=== PATIENT | male | born 1955 | race Caucasian/White ===

== ENCOUNTER 2020-12-03 10:05 | Day surgery (SDC) | payer MEDICARE, BC ==
[2020-11-28 14:56] VITALS: BMI 28.8
[2020-12-03] MEDS: SODIUM CHLORIDE 0.9% 1,000 ML IV SCH (10:59)
[2020-12-03] MEDS ORDERED: PROPOFOL 10 MG/ML 20 ML VIAL IV ONE (13:59)
[2020-12-03] MEDS ORDERED: ISOPROTERENOL 250 MCG/1.25 ML SYR IV ONE (13:59)
[2020-12-03] MEDS ORDERED: PHENYLEPHRINE-0.9% NACL SYG 1,000 MCG/10 ML SYRINGE ONE (13:59)
[2020-12-03] MEDS ORDERED: methylPREDNISolone SOD SUCCI 125 MG/2 ML VIAL ONE ×2 (13:59→14:09)
[2020-12-03] MEDS ORDERED: PROTAMINE SULFATE 10 MG/ML 5 ML VIAL IV ONE (13:59)
[2020-12-03] MEDS ORDERED: HYDROmorphone (PF) 1 MG/ML ONE (13:59)
[2020-12-03] MEDS ORDERED: fentaNYL (PF) 50 MCG/ML 2 ML AMP ONE (13:59)
[2020-12-03] MEDS ORDERED: MIDAZOLAM 2 MG/2 ML VIAL ONE (13:59)
[2020-12-03] MEDS ORDERED: HEPARIN SODIUM,PORCINE 10,000 UNIT/ML 1 ML VIAL ONE (13:59)
[2020-12-03] MEDS ORDERED: SUCCINYLCHOLINE CHLORIDE 100 MG/5 ML SYR IV ONE (13:59)
[2020-12-03] MEDS ORDERED: LIDOCAINE 1% INJ 10MG/ML (20 ML MDV) ONE (13:59)
[2020-12-03] MEDS ORDERED: diphenhydrAMINE 50 MG/ML 1 ML VIAL ONE (13:59)
[2020-12-03] MEDS ORDERED: methylPREDNISolone SOD SUCCI 125 MG/2 ML VIAL IV ONE (14:15)
[2020-12-03] MEDS ORDERED: LIDOCAINE 1% INJ 10MG/ML (20 ML MDV) SQ ONE (14:39)
[2020-12-03] MEDS ORDERED: HEPARIN SOD,PORK IN 0.45% NACL 25,000 UNIT in 0.45% NACL 1 250ML.BAG IV ONE (15:00)
[2020-12-03] MEDS ORDERED: IOPAMIDOL-370 100ML BTL INJ ONE (16:45)
--- NOTE | 2020-12-03 17:15 | P.HPCAR ---
History of Present Illness This is Dr. Begum dictating an H/P on this patient The patient was interviewed and examined IMPRESSION / ASSESSMENT: Symptomatic paroxysmal atrial fibrillation with increasing frequency and duration for the last year Partial response to flecainide Hypertension ADEOLA VASC score of 2, age over 65 and hypertension PLAN: Proceed with pulmonary vein isolation, cryoablation Continue ELIQUIS Continue antihypertensive therapy with lisinopril HPI For the last one year the patient has been experiencing increasing frequency and duration of palpitations despite being on flecainide. He may have had a viral infection in early 2019. Since then he has had more frequent episodes of atrial fibrillation These episodes leave him very tired and fatigued. He remains very fatigued even after the episode has ended His 2-D echo shows a structurally normal heart Twelve-lead EKG shows atrial fibrillation with a controlled ventricular response and despite adequate rate control during atrial fibrillation he still is left with a lot of fatigue following conversion ROS: No fever chills or rigors, no cough, phlegm or expectoration, no nausea, vomiting or diarrhea, no hematuria, dysuria, no musculoskeletal complaints, no strokes or seizures, no skin lesions. EXAMINATION: On examination his temperature is 98.2F, pulse rate in the 60s, blood pressure 144/74 mmHg Pulse ox 95% Normal heart sounds irregular no murmurs Normal breath sounds no rhonchi no crackles No JVD Soft abdomen nontender No lower extremity edema REVIEW OF LABS, ECG & MEDICAL DATA Coronavirus PCR negative 2-D echo shows a structurally normal heart with normal valves normal RV size and function Physical Exam Vitals: Vital Signs Temp Pulse Resp BP Pulse Ox 12/03/20 10:57 98.2 F 63 18 144/74 95 Intake and Output 12/03/20 12/03/20 12/03/20 06:59 14:59 22:59 Intake Total 820 18 Balance 820 18 Intake: IV 820 18 Past Medical History Past Medical History: Hypertension Additional Past Medical History / Comment(s): See Dr Padilla H&P History of Any Multi-Drug Resistant Organisms: None Reported Past Surgical History: Appendectomy, Orthopedic Surgery Additional Past Surgical History / Comment(s): left hand surgery, detatched retina, Past Anesthesia/Blood Transfusion Reactions: No Reported Reaction Smoking Status: Never smoker - Past Family History Mother Family Medical History: Cancer Additional Family Medical History / Comment(s): multiple myloma Sister(s) Family Medical History: Cancer Additional Family Medical History / Comment(s): breast Physical Examination Vital Signs Temp Pulse Resp BP Pulse Ox 12/03/20 10:57 98.2 F 63 18 144/74 95 Intake and Output 12/03/20 12/03/20 12/03/20 06:59 14:59 22:59 Intake Total 820 18 Balance 820 18 Intake: IV 820 18 Results Current Medications Generic Name Dose Route Start Last Admin Trade Name Freq PRN Reason Stop Dose Admin Sodium Chloride 1,000 mls @ 20 mls/hr 12/03/20 05:53 12/03/20 10:59 Saline 0.9% IV 01/02/21 05:54 820 mls .Q24H RAMON Administration Intake and Output 12/03/20 12/03/20 12/03/20 06:59 14:59 22:59 Intake Total 820 18 Balance 820 18 Intake: IV 820 18
--- NOTE | 2020-12-03 17:17 | P.PRLE ---
RE: Juan Diego Rosas Dear Dr. Indira Adamson underwent cryoablation of the pulmonary veins for management of symptomatic paroxysmal atrial fibrillation Following the ablation, we could not induce atrial fibrillation both on and off Isuprel Hopefully this results in significant reduction in his A. fib burden He will continue ELIQUIS for now since his ADEOLA VASC score is 2 Thank you for entrusting me with the care of the patient Warm regards Sincerely Eran Begum
--- NOTE | 2020-12-03 17:23 | P.EPPROC ---
- EP Procedure Note Electrophysiology Procedure Note: PROCEDURE A. fib ablation/cryoablation the pulmonary veins DIAGNOSIS Paroxysmal Atrial fibrillation, symptomatic, refractory to therapy RESULT No left atrial appendage mass seen on intracardiac echo Successful A. fib ablation/pulmonary vein isolation of all veins using cryo- ablation Complete entrance block in all 4 veins confirmed No evidence for phrenic nerve injury Esophageal deflection YES Electrical cardioversion with a synchronized shock across the chest NO PROCEDURE DETAILS Patient was brought to the EP lab in a fasting state. Written informed consent was obtained prior to the procedure. Procedure performed under general anesthesia After initial muscle relaxant use, muscle relaxants were not given thereafter in order to assess phrenic nerve during procedure. Patient prepped and draped as per protocol Full cryo-set up with standard preparation of the cryoablation tools done. Femoral Venous access obtained on the right and left groins Venous and arterial Sheaths placed. Diagnostic catheters for the high right atrium, phrenic nerve stimulation and pacing, His bundle, RV and coronary sinus placed Intracardiac echo catheter placed. Long sheath placed in the right atrium Left and right transseptal catheterization performed under intracardiac echo guidance. Intravenous heparin with aCT above 300 Later, catheter positioning and balloon positioning in the left atrium, under intracardiac echo guidance Diagnostic EP study with Drug infusion Coronary sinus pacing and recording Baseline measurements Sinus cycle length 682 ms, IA interval 134, QRS 112 and QT interval 367 ms AH interval 54 ms, HV interval 46 ms Atrial pacing performed from the high right atrium and the coronary sinus AV node Wenckebach block 370 ms Sinus recovery 600, 504 100 ms were 988, 1034 and 1042 ms. Corresponding carotid sinus recovery times normal Burst stimulation from the coronary sinus and from the high right atrium both on and off Isuprel, no atrial fibrillation following cryoablation Transseptal catheterization performed RA pressure 15/2/8 LA pressure 16/3/10 Transseptal catheterization performed with standard sheath. The cryoablation sheath was then placed with an over the wire exchange without any acute complications. All 4 pulmonary veins were isolated in the following sequence: Left superior followed by left inferior followed by right superior followed by right inferior The cryo-ablation balloon was placed at the os of each vein 1.5 mL of IV dye was injected to confirm an occluded vein Goal during cryoablation was to achieve complete occlusion of the pulmonary vein, achieve -30 degrees C at 30 seconds and achieve -40 degrees C at 60 seconds and a time to effect of less than 60-90 seconds, . If not the balloon was repositioned to obtain this result After completion of Cryoblation with durations from 180-240 seconds, entrance block was confirmed with the Attain circular catheter in a roving fashion around the antrum of the pulmonary veins Phrenic nerve pacing was performed from the SVC, right innominate vein area and diaphragm voltage was monitored. Diaphragmatic contractions were also monitored manually for strength of contraction. Parameter goals for each cryo freeze Complete occlusion of the appropriate vein -30 degrees C by 30 seconds -40 degrees C by 60 seconds Minimum between minus 40-55 degrees C Thaw time greater than 10 seconds Balloon visualized by intracardiac echo The esophagus was intubated. Esophageal Temperature monitoring with a CIRCA catheter formed. Esophageal deflection for hypothermia of the esophagus below 30 degrees C Left superior and inferior pulmonary vein, large common left pulmonary vein Complete isolation, entrance block Right superior pulmonary vein, during phrenic nerve pacing Complete isolation, entrance block Right inferior pulmonary vein, during phrenic nerve pacing Complete isolation, entrance block At the end of the procedure the Achieve catheter was once again used to check for entrance block Phrenic nerve stimulation was performed to confirm diaphragmatic stimulation the end of the procedure Cine fluoroscopy was performed at the very end of the procedure to confirm movement of both diaphragms with inspiration and expiration At the end of the procedure the patient was extubated Heparin was reversed Venous sheaths were removed and hemostasis assured PROCEDURES PERFORMED Diagnostic EP study CS pacing and recording Left and right transseptal catheterization Catheter the mapping of the tachycardia (NOT 3D mapping) Intracardiac echocardiography Pulmonary vein isolation with transseptal and comprehensive EPS, [id number] Drug Infusion [id number]
[2020-12-03] MEDS ORDERED: HYDROcodone/APAP 5-325MG 1 EACH TAB PO PRN (17:27)
[2020-12-03] MEDS ORDERED: ACETAMINOPHEN TAB 325 MG TAB PO PRN (17:27)
[2020-12-03] MEDS ORDERED: ACETAMINOPHEN IV (For NPO) 1,000 MG in EMPTY BAG 1 BAG IVPB ONE (17:27)
[2020-12-03] MEDS ORDERED: ACETAMINOPHEN IV (For NPO) 1,000 MG/100 ML VIAL IVPB ONE (17:43)
[2020-12-03] MEDS ORDERED: SODIUM CHLORIDE 0.9% 1,000 ML IV ONE (17:57)
[2020-12-03] MEDS: FLECAINIDE 50 MG TAB PO SCH (20:21)
[2020-12-03] MEDS: APIXABAN 5 MG TAB PO SCH (20:21)
[2020-12-04] MEDS: APIXABAN 5 MG TAB PO SCH (08:43)
[2020-12-04] MEDS: FLECAINIDE 50 MG TAB PO SCH (08:43)
[2020-12-04] MEDS ORDERED: lisinopriL 10 MG TAB PO SCH (09:00)
[2020-12-04] MEDS ORDERED: DILTIAZEM CD 180 MG CAP.ER.24H PO SCH (09:00)
[2020-12-04 11:48] VITALS: BP 121/64; PULSE 76; RESP 16; TEMP 98
[2020-12-04] MEDS: SODIUM CHLORIDE 0.9% 1,000 ML IV SCH (11:49)
--- NOTE | 2020-12-04 12:49 | P.DS ---
Providers Attending physician: Eran Begum Primary care physician: Gregorio Jacobson Assessment: Patient is doing well. Vitals are stable heart rates are normal Rhythm is regular telemetry events. EKG is normal He is a mildly sore throat is normal following difficulty lying yesterday he had chest discomfort after the procedure but now he barely has any discomfort at all Is not dizzy or lightheaded On examination heart sounds S1 and S2 are normal no rub no gallop Breath sounds are clear no rhonchi no crackles No JVD Abdomen soft nontender Groins if he does well there is minimal puffiness in both groins minimal tenderness Extremities warm no edema Impression Pulmonary vein isolation with cryoablation of the pulmonary veins Plan Restart flecainide Continue ELIQUIS uninterrupted Continue all other cardiac medications I will see him in about 2 weeks He may be discharged from a cardiac standpoint he is stable to go home today Plan - Discharge Summary Discharge Rx Participant: Yes New Discharge Prescriptions: Continue Flecainide [Tambocor] 50 mg PO Q12HR Apixaban [Eliquis] 5 mg PO BID Red Yeast Rice 1,200 mg PO DAILY Cholecalciferol (Vitamin D3) [Vitamin D3 (4,000 Iu)] 4,000 unit PO DAILY Diltiazem HCl [Diltiazem HCl 24Hr ER] 180 mg PO QAM lisinopriL 10 mg PO QAM Multivitamins, Thera [Multivitamin (formulary)] 1 tab PO DAILY Discharge Medication List Apixaban [Eliquis] 5 mg PO BID 11/28/20 [History] Cholecalciferol (Vitamin D3) [Vitamin D3 (4,000 Iu)] 4,000 unit PO DAILY 11/28/20 [History] Diltiazem HCl [Diltiazem HCl 24Hr ER] 180 mg PO QAM 11/28/20 [History] Flecainide [Tambocor] 50 mg PO Q12HR 11/28/20 [History] Multivitamins, Thera [Multivitamin (formulary)] 1 tab PO DAILY 11/28/20 [History] Red Yeast Rice 1,200 mg PO DAILY 11/28/20 [History] lisinopriL 10 mg PO QAM 11/28/20 [History] Follow up Appointment(s)/Referral(s): Eran Begum MD [STAFF PHYSICIAN] - 2 Weeks Activity/Diet/Wound Care/Special Instructions: Post EP study - Ablation instructions 1. Keep access sites dry for 2 days. 2. No heavy lifting or straining for 2 days. 3. Avoid bending the hips repeatedly for 2 days. 4. You may go up and down stairs slowly Call if the following is noted 1. Bleeding, increasing swelling or pain at the access sites. 2. Increasing chest discomfort, especially upon taking a deep breath. 3. Increasing shortness of breath, at rest or with exertion. 4. Undue cough / phlegm 5. Difficulty or pain while swallowing. 6. Pain or change in color in the extremities. 7. Fever, chills, rigors. 8. Increasing headache or neurologic symptoms. 9. Dizziness, fainting, palpitations Do not stop ELIQUIS Discharge Disposition: HOME SELF-CARE
== END 2020-12-04 13:53 | disposition home or self-care (01) ==
LOC: CATHEP 10:05 → 3SCARD 16:48 → CATHEP 12-04 13:53
PROVIDERS: ATTEND Internal Medicine Clinical Cardiac Electrophysiology
DX: I48.0 Paroxysmal atrial fibrillation (principal); I10 Essential (primary) hypertension; Z20.822 Contact with and (suspected) exposure to COVID-19; Z82.49 Family history of ischemic heart disease and other diseases of the circulatory system; Z91.048 Other nonmedicinal substance allergy status; Z79.01 Long term (current) use of anticoagulants; Z79.899 Other long term (current) drug therapy
CPT/HCPCS: 92960; 93662; 93609; 93656; 87635; C1769 ×4; C1894 ×2; C1730 ×2; C1759; C1893; C1733; C1766; J2250; J2720; J1200; J1644 ×2; J2930; J2001; J3010; J1170; J0131; J2370; J0330; J2704; Q9967